=== PATIENT | male | born 1985 | race Caucasian/White ===

== ENCOUNTER 2021-01-17 20:05 | Inpatient (IN) | payer SELFPAY ==
[2021-01-17] MEDS ORDERED: Promethazine HCl 25 MG/ML VIAL ONE ×2 (21:33→22:58)
[2021-01-17 21:45] LABS: #Monocytes 0.5 10x3/uL (0.0-1.1); #Neutrophils 3.5 10x3/uL (1.5-8.4); %Basophils 0.2 % (0.0-2.0); %Lymphocytes 13.3 % (18.0-47.0); %Monocytes 9.7 % (0.0-10.0); %Neutrophils 75.5 % (40.0-75.0); Hemoglobin 14.6 g/dL (13.5-17.5); Mean Corpuscular HGB CONC 34.4 g/dL (32.0-36.0); Mean Corpuscular Volume 87.2 fl (81.2-95.1); Mean Platelet Volume 8.9 fl (7.4-10.4); Platelet Count 141 10x3/uL (150-450); RBC Distribution Width 12.6 % (11.5-14.5); Red Blood Cell (RBC) Count 4.86 10x6/uL (4.32-5.72); White Blood Cell (WBC) Count 4.7 10x3/uL (3.5-10.5)
[2021-01-17 21:48] LABS: ALT (SGPT) 101 U/L (8-55); AST (SGOT) 93 U/L (5-34); Albumin 3.7 g/dL (3.5-5.0); Alkaline Phosphatase 68 U/L (40-110); Anion Gap 15 mmol/L (10-20); BUN (Urea Nitrogen) 9 mg/dL (8.9-20.6); Bilirubin, Total 0.6 mg/dL (0.2-1.2); Calc. Creatinine Clearance 0 mL/min (70-130); Carbon Dioxide 24 mmol/L (22-29); Chloride 104 mmol/L (98-107); Glucose 106 mg/dL (70-105); Potassium 4.3 mmol/L (3.5-5.1); Protein, Total 6.7 g/dL (6.0-8.3); Sodium 139 mmol/L (136-145)
[2021-01-17] MEDS ORDERED: HYDROcodone/Acetaminophen 5/325 mg Tablet PO PRN ×2 (23:31)
[2021-01-17] MEDS ORDERED: Guaifenesin DM 100-10/5 ML UDCUP PO PRN (23:31)
[2021-01-17] MEDS ORDERED: Zolpidem Tartrate 5 MG TAB PO PRN (23:31)
[2021-01-17] MEDS ORDERED: Calcium Carbonate 500 MG ChewTAB PO PRN (23:31)
[2021-01-17] MEDS ORDERED: Ondansetron PF 4 MG/2 ML Vial IVP PRN (23:31)
[2021-01-17] MEDS ORDERED: Ventolin HFA Inhaler 60 PUFF INHALER INH PRN (23:34)
[2021-01-17] MEDS ORDERED: Lactated Ringer's 1,000 ML IV SCH (23:45)
[2021-01-18] MEDS ORDERED: Dexamethasone 20 MG/5 ML VIAL SLOW IVP SCH (01:00)
[2021-01-18] MEDS: guaiFENesin/Codeine Phosphate 100 mg/10 mg 5 ml UD Cup PO SCH ×5 (01:06→23:20)
[2021-01-18] MEDS: Acetaminophen 325 MG TAB PO PRN ×2 (02:01→05:49)
[2021-01-18 03:04] VITALS: BMI 28.5
[2021-01-18] MEDS ORDERED: Loperamide HCl 1 MG/7.5 ML UDCUP PO SCH (03:30)
[2021-01-18 05:00] LABS: #Monocytes 0.4 10x3/uL (0.0-1.1); #Neutrophils 4.3 10x3/uL (1.5-8.4); %Basophils 0.2 % (0.0-2.0); %Lymphocytes 10.9 % (18.0-47.0); %Monocytes 7.3 % (0.0-10.0); %Neutrophils 80.5 % (40.0-75.0); Mean Corpuscular HGB CONC 34.1 g/dL (32.0-36.0); Mean Corpuscular Volume 87.8 fl (81.2-95.1); Mean Platelet Volume 9.2 fl (7.4-10.4); Platelet Count 147 10x3/uL (150-450); RBC Distribution Width 12.6 % (11.5-14.5); Red Blood Cell (RBC) Count 4.34 10x6/uL (4.32-5.72); White Blood Cell (WBC) Count 5.3 10x3/uL (3.5-10.5)
[2021-01-18 05:24] LABS: ALT (SGPT) 79 U/L (8-55); AST (SGOT) 65 U/L (5-34); Albumin 3.2 g/dL (3.5-5.0); Alkaline Phosphatase 61 U/L (40-110); Anion Gap 13 mmol/L (10-20); BUN (Urea Nitrogen) 8 mg/dL (8.9-20.6); Bilirubin, Total 0.4 mg/dL (0.2-1.2); CK (CPK) 195 U/L (30-200); Calc. Creatinine Clearance 125 mL/min (70-130); Calcium 8.4 mg/dL (7.8-10.44); Carbon Dioxide 23 mmol/L (22-29); Chloride 107 mmol/L (98-107); Globulin 2.6 g/dL (2.4-3.5); Glucose 110 mg/dL (70-105); Lipase 62 U/L (8-78); Potassium 4.1 mmol/L (3.5-5.1); Protein, Total 5.8 g/dL (6.0-8.3); Sodium 139 mmol/L (136-145)
[2021-01-18] MEDS: Cefepime 1 GM in Sodium Chloride 0.9% 100 ML IVPB SCH ×2 (08:54→20:56)
[2021-01-18] MEDS: Cholecalciferol 1,000 UNITS (25 MCG) TAB PO SCH (08:54)
[2021-01-18] MEDS: Aspirin 81 mg Enteric Coated Tablet PO SCH (08:54)
[2021-01-18] MEDS: Ascorbic Acid 500 mg Chewable Tablet PO SCH (08:54)
[2021-01-18] MEDS: Benzonatate 100 MG CAP PO SCH ×3 (08:54→20:56)
[2021-01-18] MEDS: Enoxaparin Sodium 40 MG/0.4 ML SYRINGE SC SCH (08:54)
[2021-01-18] MEDS: Zinc Gluconate 50 MG TAB PO SCH (08:55)
[2021-01-18] MEDS: Dexamethasone 20 MG/5 ML VIAL SLOW IVP SCH (20:57)
[2021-01-19 06:21] LABS: Anion Gap 14 mmol/L (10-20); BUN (Urea Nitrogen) 13 mg/dL (8.9-20.6); CRP (Inflammatory) 5.21 mg/dL (= or < 0.5); Calc. Creatinine Clearance 134 mL/min (70-130); Calcium 9.1 mg/dL (7.8-10.44); Carbon Dioxide 27 mmol/L (22-29); Chloride 106 mmol/L (98-107); Glucose 142 mg/dL (70-105); Potassium 4.3 mmol/L (3.5-5.1); Sodium 143 mmol/L (136-145)
[2021-01-19 06:59] LABS: MDiff Complete? YES
[2021-01-19 07:00] LABS: Hemoglobin 14.1 g/dL (13.5-17.5); Mean Corpuscular HGB CONC 32.8 g/dL (32.0-36.0); Mean Corpuscular Volume 91.5 fl (81.2-95.1); Mean Platelet Volume 8.9 fl (7.4-10.4); Platelet Count 176 10x3/uL (150-450); RBC Distribution Width 12.8 % (11.5-14.5); White Blood Cell (WBC) Count 4.6 10x3/uL (3.5-10.5)
[2021-01-19 07:09] LABS: Band 2 % (5-11); Lymphocytes 18 % (21-51); Monocytes 5 % (0-10); Neutrophil 69 % (42-75); Reactive Lymphocytes 6 % (0-10)
[2021-01-19 07:10] LABS: Platelet Morphology Comment Appears Adequate; RBC Morphology Normal
[2021-01-19] MEDS: Zinc Gluconate 50 MG TAB PO SCH (08:26)
[2021-01-19] MEDS: Ascorbic Acid 500 mg Chewable Tablet PO SCH (08:26)
[2021-01-19] MEDS: Cefepime 1 GM in Sodium Chloride 0.9% 100 ML IVPB SCH ×2 (08:26→21:17)
[2021-01-19] MEDS: Cholecalciferol 1,000 UNITS (25 MCG) TAB PO SCH (08:26)
[2021-01-19] MEDS: Enoxaparin Sodium 40 MG/0.4 ML SYRINGE SC SCH (08:26)
[2021-01-19] MEDS: Benzonatate 100 MG CAP PO SCH ×3 (08:26→21:18)
[2021-01-19] MEDS: Aspirin 81 mg Enteric Coated Tablet PO SCH (08:26)
[2021-01-19] MEDS: Dexamethasone 20 MG/5 ML VIAL SLOW IVP SCH (21:18)
[2021-01-20] MEDS: Enoxaparin Sodium 40 MG/0.4 ML SYRINGE SC SCH (09:41)
[2021-01-20] MEDS: Ascorbic Acid 500 mg Chewable Tablet PO SCH (09:42)
[2021-01-20] MEDS: Cholecalciferol 1,000 UNITS (25 MCG) TAB PO SCH (09:42)
[2021-01-20] MEDS: Benzonatate 100 MG CAP PO SCH ×3 (09:42→21:11)
[2021-01-20] MEDS: Cefepime 1 GM in Sodium Chloride 0.9% 100 ML IVPB SCH ×2 (09:42→21:11)
[2021-01-20] MEDS: Aspirin 81 mg Enteric Coated Tablet PO SCH (09:42)
[2021-01-20] MEDS: Zinc Gluconate 50 MG TAB PO SCH (09:47)
[2021-01-20] MEDS: BARICITINIB 2 MG TAB PO SCH ×2 (16:17→16:18)
[2021-01-20] MEDS: Dexamethasone 20 MG/5 ML VIAL SLOW IVP SCH (21:11)
[2021-01-21 05:45] LABS: Anion Gap 14 mmol/L (10-20); BUN (Urea Nitrogen) 18 mg/dL (8.9-20.6); CRP (Inflammatory) 1.21 mg/dL (= or < 0.5); Calc. Creatinine Clearance 137 mL/min (70-130); Calcium 9.3 mg/dL (7.8-10.44); Carbon Dioxide 26 mmol/L (22-29); Chloride 105 mmol/L (98-107); Glucose 137 mg/dL (70-105); Sodium 140 mmol/L (136-145)
[2021-01-21 05:57] LABS: Hemoglobin 13.8 g/dL (13.5-17.5); Mean Corpuscular HGB CONC 33.4 g/dL (32.0-36.0); Mean Corpuscular Hemoglobin 29.6 pg (27.0-33.0); Mean Corpuscular Volume 88.6 fl (81.2-95.1); Platelet Count 221 10x3/uL (150-450); RBC Distribution Width 12.8 % (11.5-14.5); Red Blood Cell (RBC) Count 4.66 10x6/uL (4.32-5.72); White Blood Cell (WBC) Count 5.6 10x3/uL (3.5-10.5)
[2021-01-21 06:32] LABS: MDiff Complete? YES
[2021-01-21 06:35] LABS: Lymphocytes 11 % (21-51); Monocytes 5 % (0-10); Neutrophil 83 % (42-75); Reactive Lymphocytes 1 % (0-10)
[2021-01-21] MEDS: Aspirin 81 mg Enteric Coated Tablet PO SCH (09:57)
[2021-01-21] MEDS: Ascorbic Acid 500 mg Chewable Tablet PO SCH (09:57)
[2021-01-21] MEDS: Cefepime 1 GM in Sodium Chloride 0.9% 100 ML IVPB SCH (09:57)
[2021-01-21] MEDS: Benzonatate 100 MG CAP PO SCH (09:57)
[2021-01-21] MEDS: Zinc Gluconate 50 MG TAB PO SCH (10:00)
[2021-01-21] MEDS: Cholecalciferol 1,000 UNITS (25 MCG) TAB PO SCH (10:00)
[2021-01-21] MEDS: Enoxaparin Sodium 40 MG/0.4 ML SYRINGE SC SCH (10:01)
[2021-01-21 15:20] VITALS: BP 126/70; TEMP 98.1
== END 2021-01-21 15:37 | disposition home or self-care (01) | DRG 177 ==
LOC: CSHERS 20:05 → CSHTELE 23:28
PROVIDERS: ADMIT Student in an Organized Health Care Education/Training Program; ATTEND Hospitalist
PROC: 8E0ZXY6 Isolation (ICD-10-PCS; principal; 2021-01-17)
DX: U07.1 COVID-19 (principal); J12.82 Pneumonia due to coronavirus disease 2019; J96.01 Acute respiratory failure with hypoxia; R65.10 Systemic inflammatory response syndrome (SIRS) of non-infectious origin without acute organ dysfunction; Z87.891 Personal history of nicotine dependence; E86.0 Dehydration
CPT/HCPCS: 36415; 71045; 80048; 80053; 82550; 83690; 84145; 85025; 85379; 86140; 87040; 87070; 87205; 94760; 96374; 96376; J0692; J1100; J1650; J2405; J2550; J3490; J7120

== ENCOUNTER 2021-04-18 14:48 | Outpatient (CLI) | payer OTHER | END 2021-04-18 14:49 | disposition home or self-care (01) | LOC: CSHRAD 14:48 | PROVIDERS: ATTEND Family Medicine | DX: R06.02 Shortness of breath (principal); U09.9 Post COVID-19 condition, unspecified | CPT/HCPCS: 71046 ==

== ENCOUNTER 2023-12-08 20:20 | Emergency (ER) | payer SELFPAY ==
[2023-12-08] MEDS ORDERED: Ibuprofen 200 MG TAB ONE (20:58)
[2023-12-08 21:50] LABS: Influenza A by NAA Not Detected (NotDetected); Influenza B by NAA Not Detected (NotDetected); SARS-CoV-2 NAA Rapid Test Not Detected (NotDetected)
[2023-12-09] MEDS ORDERED: Ondansetron PF 4 MG/2 ML Vial ONE (00:14)
== END 2023-12-09 00:39 | disposition home or self-care (01) ==
LOC: CSHERS 20:20
DX: B34.9 Viral infection, unspecified (principal)
CPT/HCPCS: 71045; 96361; 96374; J2405